=== PATIENT | female | born 1980 | race Two or more races ===

== ENCOUNTER 2018-05-25 12:44 | Observation (INO) | payer SELFPAY ==
[~2018-05-25] VITALS: Ht 167.6 cm; Wt 56.7 kg
[2018-05-25] MEDS ORDERED: SODIUM CHLORIDE 0.9% 1,000 ML IVB ONE (13:37)
[2018-05-25 14:06] LABS: Basophils # (auto) 0 uL; Basophils % (auto) 0.4 % (0.0-2.0); Eosinophils # (auto) 0 uL; Eosinophils % (auto) 0.1 % (0.0-7.0); Hemoglobin 9.1 g/dL (12.2-16.2); Lymphocytes # (auto) 1.7 uL; Mean Corpuscular Hemoglobin 23.2 pg (28.0-32.0); Monocytes # (auto) 0.3 uL
[2018-05-25 14:08] LABS: Hematocrit 28.1 % (36.0-46.0); Lymphocytes % (auto) 28.5 % (10.0-50.0); Mean Corpuscular Hgb Conc. 32.5 g/dL (32.0-36.0); Mean Corpuscular Volume 71.5 fL (80.0-100.0); Neutrophils # (auto) 3.8 uL; Red Blood Cells 3.94 10^6/uL (4.0-5.20); White Blood Cell 5.8 10^3/uL (4.4-10.8)
[2018-05-25 14:09] LABS: Red Cell Distribution Width 22.5 % (11.8-14.3)
[2018-05-25 14:10] LABS: Platelet Count (auto) 171 10^3/uL (140-450)
[2018-05-25 14:25] LABS: Albumin 3.4 g/dL (3.4-5.0); BUN/Creatinine Ratio 15.2; Bilirubin, Total 0.3 mg/dL (0.2-1.0); Calcium 7.4 mg/dL (8.5-10.1); Potassium 3.1 mmol/L (3.5-5.1); Total Protein 6.8 g/dL (6.4-8.2)
[2018-05-25 14:47] LABS: INR 1.03 (0.9-1.15); Partial Thromboplastin Time 23.1 sec (23.78-33.04)
[2018-05-25] MEDS ORDERED: THIAMINE INJ 100 MG, MULTIPLE VITAMIN 10 ML, FOLIC ACID 1 MG, MAGNESIUM SULF SDV 50% 8 ... IV SCH ×5 (15:30)
[2018-05-25 17:04] LABS: Amphetamine Screen, Urine NEGATIVE (NEGATIVE); Barbiturate Scree,Urine NEGATIVE (NEGATIVE); Benzodiazephine Screen, Urine NEGATIVE (NEGATIVE); Cannabinoid Screen, Urine NEGATIVE (NEGATIVE); Cocaine Screen, Urine NEGATIVE (NEGATIVE); Opiate Scree,Urine NEGATIVE (NEGATIVE); Phencyclidine Screen, Urine NEGATIVE (NEGATIVE)
[2018-05-25 17:05] LABS: Urine Bacteria FEW /hpf (None Seen); Urine Blood Negative /uL (Negative); Urine Specific Gravity 1.005 (1.001-1.035); Urine WBC 1 /hpf (0 - 5)
[2018-05-25] MEDS ORDERED: POTASSIUM CHL 20 Meq TABLET PO ONE (17:45)
[2018-05-25 18:09] VITALS: BP 92/51
== END 2018-05-25 19:38 | disposition left against medical advice (07) | DRG 894 ==
LOC: EDUNIT# 12:44 → ER 12:44 → EDBD 12:44 → OVERFLOW 12:45 → ER 19:38
PROVIDERS: ADMIT Family Medicine; ATTEND Family Medicine
DX: F10.129 Alcohol abuse with intoxication, unspecified (principal); I63.9 Cerebral infarction, unspecified; E87.6 Hypokalemia; D64.9 Anemia, unspecified; E16.2 Hypoglycemia, unspecified
CPT/HCPCS: 36415; 70450; 71045; 80053; 80307; 80320; 81001; 82962; 83735; 84702; 85025; 85610; 85730; 93005; 96360; 96361; 99285; G0378; J3411; J3475; J7030; J7070

== ENCOUNTER 2018-06-02 20:22 | Emergency (ER) | payer SELFPAY ==
[~2018-06-02] VITALS: Ht 157.5 cm; Wt 54.4 kg
[2018-06-02 20:29] VITALS: BP 108/69
== END 2018-06-02 21:40 | disposition left against medical advice (07) ==
LOC: EDBD 20:22 → ER 20:26
DX: F10.120 Alcohol abuse with intoxication, uncomplicated (principal); Z53.21 Procedure and treatment not carried out due to patient leaving prior to being seen by health care provider